=== PATIENT | female | born 1970 | race Caucasian/White ===

== ENCOUNTER → 2024-08-24 08:34 | Outpatient (REF) | payer OTHER, SELFPAY | LOC: HWWDC 08:34 | PROVIDERS: ATTENDING PHYSICIAN Nurse Practitioner Adult Health; FAMILY PHYSICIAN Internal Medicine | DX: Z12.31 Encounter for screening mammogram for malignant neoplasm of breast (principal) | CPT/HCPCS: 77063; 77067 ==

== ENCOUNTER → 2025-02-08 07:52 | Outpatient (REF) | payer OTHER, SELFPAY | LOC: RAD 07:52 | PROVIDERS: ATTENDING PHYSICIAN Anesthesiology | DX: M17.11 Unilateral primary osteoarthritis, right knee (principal); M19.271 Secondary osteoarthritis, right ankle and foot; M19.272 Secondary osteoarthritis, left ankle and foot | CPT/HCPCS: 73560; 73600 ==